=== PATIENT | male | born 1995 | race Caucasian/White ===

== ENCOUNTER 2016-04-23 17:03 | Emergency (ER) | payer OTHER ==
[2016-04-23] MEDS ORDERED: Ondansetron TAB* 4 MG PO ONE (20:28)
[2016-04-23] MEDS ORDERED: Ondansetron ODT TAB* 4 MG ONE (20:29)
[2016-04-23 20:40] VITALS: BP 117/62
--- NOTE | 2016-04-23 21:02 | ED ---
Hawa Farrell Claudia, scribed for Zach Spangler MD on 04/23/16 at 1807 . Complex/Multi-Sys Presentation - HPI Summary HPI Summary: 21 year old male presents to the ED from [facility] with N/V/D and diffuse abd pain with some cramping. Pt notes sudden onset of Sx at about 1200am today. PT notes N/V/D about every hour since sudden onset of Sx. Pt notes no V/D since 1300 today. He notes a decrease in PO intake including water. Pt notes 1 bout of fever at about 1600 today. Pt did not take any Motrin or Tylenol. - History Of Current Complaint Chief Complaint: EDAbdPain Time Seen by Provider: 04/23/16 17:58 Hx Obtained From: Patient Onset/Duration: Sudden Onset - 1200 am today, Lasting Hours, Still Present Timing: Intermittent, Lasting: Associated Signs And Symptoms: Positive: Nausea, Vomiting, Diarrhea, Abdominal Pain - diffuse, Fever. Negative: Cough - Allergies/Home Medications Allergies/Adverse Reactions: Allergies Allergy/AdvReac Type Severity Reaction Status Date / Time No Known Allergies Allergy Verified 12/15/13 17:15 PMH/Surg Hx/FS Hx/Imm Hx Previously Healthy: Yes Endocrine/Hematology History: Denies: Hx Diabetes Cardiovascular History: Denies: Hx Hypertension Infectious Disease History: No Infectious Disease History: Denies: Traveled Outside the [place] in Last 30 Days - Family History Known Family History: Negative: Cardiac Disease, Hypertension, Diabetes - Social History Occupation: Student - [employer] Alcohol Use: Occasionally Substance Use Type: Reports: None Smoking Status (MU): Never Smoked Tobacco Review of Systems Negative: Chills, Skin Diaphoresis Eyes: Negative ENT: Negative Cardiovascular: Negative Respiratory: Negative Positive: Abdominal Pain - diffuse , Vomiting, Diarrhea, Nausea Genitourinary: Negative Musculoskeletal: Negative Skin: Negative Neurological: Negative Psychological: Normal All Other Systems Reviewed And Are Negative: Yes Physical Exam Triage Information Reviewed: Yes Vital Signs On Initial Exam: Initial Vitals Temp Pulse Resp BP Pulse Ox 100.0 F 116 18 111/77 99 04/23/16 17:13 04/23/16 17:13 04/23/16 17:13 04/23/16 17:13 04/23/16 17:13 Vital Signs Reviewed: Yes Appearance: Positive: Well-Appearing, No Pain Distress Skin: Positive: Warm, Skin Color Reflects Adequate Perfusion, Dry Eyes: Positive: Normal ENT: Positive: Other - dry lips Respiratory/Lung Sounds: Positive: Clear to Auscultation, Breath Sounds Present Cardiovascular: Positive: RRR Abdomen Description: Positive: Nontender, Soft Musculoskeletal: Positive: Normal, Strength/ROM Intact Neurological: Positive: Normal, Sensory/Motor Intact Psychiatric: Positive: Normal, Affect/Mood Appropriate Diagnostics - Vital Signs Vital Signs Temp Pulse Resp BP Pulse Ox 04/23/16 17:13 100.0 F 116 18 111/77 99 - Laboratory Lab Statement: Any lab studies that have been ordered have been reviewed, and results considered in the medical decision making process. Complex Multi-Symp Course/Dx - Diagnoses Differential Diagnoses/HQI/PQRI: Other - Primary concern for near syncope from the gastroenteritis. Feels improved after IVF. Soft benign abdomen. Provider Diagnoses: Dehydration Discharge - Discharge Plan Condition: Improved Disposition: HOME Prescriptions: Ondansetron TAB* [Zofran Tab*] 4 mg PO Q6H PRN #10 tab PRN Reason: Nausea Patient Education Materials: Dehydration (ED) Forms: *School Release Referrals: [facility] GILMA Riddle [Primary Care Provider] - The documentation as recorded by the Hawa klein Claudia accurately reflects the service I personally performed and the decisions made by me, Zach Spangler MD.
== END 2016-04-23 20:35 | disposition home or self-care (01) ==
LOC: ED 17:03
DX: E86.0 Dehydration (principal); R11.2 Nausea with vomiting, unspecified; R19.7 Diarrhea, unspecified; R10.9 Unspecified abdominal pain
CPT/HCPCS: 99282; A9270-GY

== ENCOUNTER 2017-11-17 01:08 | Emergency (ER) | payer OTHER ==
--- NOTE | 2017-11-17 03:14 | ED ---
Laceration/Wound HPI - HPI Summary HPI Summary: 22-year-old male presents with right forearm laceration today. He states he cut it on a window. He states no foreign body in wound. Immunizations up-to- date. Area continues to ooze. No numbness or tingling. No other injury. he is right handed. He is a student. no medical conditions. - History of Current Complaint Stated Complaint: RIGHT WRIST LAC Time Seen by Provider: 11/17/17 02:52 Pain Intensity: 2 - Allergy/Home Medications Allergies/Adverse Reactions: Allergies Allergy/AdvReac Type Severity Reaction Status Date / Time No Known Allergies Allergy Verified 12/15/13 17:15 PMH/Surg Hx/FS Hx/Imm Hx Endocrine/Hematology History: Denies: Hx Diabetes Cardiovascular History: Denies: Hx Hypertension Infectious Disease History: No Infectious Disease History: Denies: Traveled Outside the in Last 30 Days - Family History Known Family History: Negative: Cardiac Disease, Hypertension, Diabetes - Social History Alcohol Use: Weekly Substance Use Type: Reports: None Smoking Status (MU): Never Smoked Tobacco Review of Systems Negative: Fever Negative: Chest Pain Negative: Shortness Of Breath Positive: Myalgia - right wrist lac All Other Systems Reviewed And Are Negative: Yes Physical Exam Triage Information Reviewed: Yes Vital Signs On Initial Exam: Initial Vitals Temp Pulse Resp BP Pulse Ox 98.5 F 76 16 133/83 100 11/17/17 01:15 11/17/17 01:15 11/17/17 01:15 11/17/17 01:15 11/17/17 01:15 Vital Signs Reviewed: Yes Appearance: Positive: Well-Appearing Skin: Positive: Warm, Dry, Other - 3cm by 1cm laceration Head/Face: Positive: Normal Head/Face Inspection Eyes: Positive: Normal, Conjunctiva Clear ENT: Positive: Pharynx normal Respiratory/Lung Sounds: Positive: Clear to Auscultation, Breath Sounds Present Cardiovascular: Positive: Normal, RRR Musculoskeletal: Positive: Strength/ROM Intact - right wrist, Other - good pulses Neurological: Positive: Normal Psychiatric: Positive: Normal Procedures - Laceration/Wound Repair 1 Location: Other - right lac Description: Linear Anesthesia: Local, 1.0%, Epi Length, Depth and Shape: 3cm by 1cm Irrigated w/ Saline (ccs): 200 Laceration/Wound Explored: no foreign body removed Closure: Single Layer Suture Type: Prolene Number of Sutures: 4 Diagnostics - Vital Signs Vital Signs Temp Pulse Resp BP Pulse Ox 11/17/17 01:15 98.5 F 76 16 133/83 100 - Laboratory Lab Statement: Any lab studies that have been ordered have been reviewed, and results considered in the medical decision making process. Laceration Repair Course/Dx - Course Course Of Treatment: 22-year-old presents with right forearm laceration today. He states he cut it on a window. He states no foreign body. Immunizations up- to-date. Area continues to ooze. No numbness or tingling. No other injury. On exam has 3cm by 1cm laceration on right forearm. Cleaned area and placed 4 suture. Patient understand and agrees with plan. - Differential Dx Differental Diagnoses: Abrasion, Avulsion, Laceration - Clinical Impression Provider Diagnoses: Laceration of right wrist Discharge - Sign-Out/Discharge Documenting (check all that apply): Patient Departure - Discharge Plan Condition: Good Disposition: HOME Patient Education Materials: Care For Your Stitches (ED) Referrals: No Primary Care Phys,NOPCP [Primary Care Provider] - Additional Instructions: Take Tylenol or ibuprofen for pain Keep area clean and dry for 24 hours Return to ED or primary in 8-10 days to have sutures removed Return to ED if develop signs of infection such as fever, spreading redness, or pus. - Billing Disposition and Condition Condition: GOOD Disposition: Home
[2017-11-17 03:34] VITALS: BP 130/69
== END 2017-11-17 03:33 | disposition home or self-care (01) ==
LOC: ED 01:08
DX: S51.811A Laceration without foreign body of right forearm, initial encounter (principal); W25.XXXA Contact with sharp glass, initial encounter; Y92.9 Unspecified place or not applicable
CPT/HCPCS: 12002; 99282